=== PATIENT | female | born 1930 | race Caucasian/White ===

== ENCOUNTER 2017-04-03 08:26 | Emergency (ER) | payer MEDICARE, OTHER ==
[~2017-04-03 08:26] MED LIST: ASAB PO; MULTIVIT/MIN PO; PRAVACHOL40 MG PO
== END 2017-04-03 10:27 | disposition home or self-care (01) ==
LOC: ER 08:26
PROC: 0HQ1XZZ Repair Face Skin, External Approach (ICD-10-PCS; principal; 2017-04-03)
DX: S01.112A Laceration without foreign body of left eyelid and periocular area, initial encounter (principal); F03.90 Unspecified dementia, unspecified severity, without behavioral disturbance, psychotic disturbance, mood disturbance, and anxiety; D64.9 Anemia, unspecified; Z79.899 Other long term (current) drug therapy; Z79.82 Long term (current) use of aspirin; W19.XXXA Unspecified fall, initial encounter
CPT/HCPCS: 70450; 70486; 90471; 90714; 93005; 99284